=== PATIENT | female | born 1955 | race Caucasian/White ===

== ENCOUNTER 2020-04-28 15:51 | Emergency (ER) | payer MEDICARE, MEDICAID, SELFPAY ==
[2020-04-28 16:34] VITALS: BP 102/63; PULSE 97; RESP 16; TEMP 36.2; O2SAT 94; BMI 34.7
--- NOTE | 2020-04-28 17:14 | XRR_ITS ---
PROCEDURE INFORMATION: Exam: XR Abdomen, 1 View Exam date and time: 04/28/2020 6:43 PM Age: 65 years old Clinical indication: Abdominal pain; Generalized TECHNIQUE: Imaging protocol: XR of the abdomen. Views: Frontal supine view of the abdomen. 1 View. COMPARISON: No relevant prior studies available. FINDINGS: Gastrointestinal tract: No dilated gas-filled loops of bowel. Organs: Prior cholecystectomy. Bones/joints: There is a curvature of the lumbar spine convex to the left associated with multilevel facet arthropathy. XR/XR KUB portable [id number] IMPRESSION: No acute abnormality.
--- NOTE | 2020-04-28 18:22 | W.ED.GENADLT ---
HPI - General Adult General: Chief complaint: General Medical Stated complaint: possible bowel obstruction Time Seen by Provider: 04/28/20 18:20 History of Present Illness: HPI narrative: Patient sent from clinic by ASSOCIATE SPA DIRECTOR for possible rule out small bowel obstruction. Patient had a bowel obstruction and 1984 from hysterectomy scarring. Patient said she has vomited earlier this weekend but she is not been vomiting more she denies any pain presently does have diarrhea not had a large bowel movement yet. Denies any fever chills or other problems. MD complaint: Decreased bowel movement Onset (ago): day(s) Location: abdomen Radiation: non-radiation Severity: mild Severity scale (1-10): 1 Associated symptoms: Reports other (Diarrhea); Deny chest pain, dyspnea, headache(s), nausea, rash or vomiting Review of Systems Const: Denies: fever(s), chills or body aches Eyes: Denies: change in vision or blurry vision ENMT: Denies: throat pain or nasal congestion Card: Denies: chest pain or dyspnea on exertion Resp: Denies: dyspnea, productive cough or non-productive cough GI: Reports: diarrhea; Denies: abdominal pain, nausea or vomiting Musc: Denies: extremity pain Skin/Breast: Denies: rash Neuro: Denies: headache(s) Psych: Denies: anxiety or depression Rey/Lymph: Denies: easy bruising PFS ED PFSH: Social History (Updated 04/28/20 @ 16:39 by Enrique Garay RN) Smoking and tobacco status: never smoked Alcohol intake: never Substance/Drug Use: never Physical Exam Const: COMMON NORMALS: no acute distress, average body habitus and patient oriented x3 HENMT: COMMON NORMALS: normocephalic HEAD & SCALP: normal to inspection and normocephalic FACE & SINUS: normal facial exam Eye: COMMON NORMALS: conjunctivae normal GENERAL EYE: appearance normal, both eyes and all related structures CONJUNCTIVA: Yes conjunctivae normal Neck/C-Spine: COMMON NORMALS: no JVD Chest: COMMONS NORMALS: normal inspection of the chest Resp: COMMON NORMALS: normal respiratory effort and clear to auscultation bilaterally AUSCULTATION: clear to auscultation bilaterally Cardio: COMMON NORMALS: no JVD, regular rate and regular rhythm RATE: regular rate RHYTHM: regular rhythm GI: COMMON NORMALS: Normal to inspection, nondistended, normoactive bowel sounds present Extremity: COMMON NORMALS: normal to inspection and full ROM Neuro: COMMON NORMALS: patient oriented x3 Course Vital Signs: Vital signs: Vital Signs Temperature 97.2 F L 04/28/20 16:34 Pulse Rate 78 04/28/20 22:06 Respiratory Rate 16 04/28/20 22:06 Blood Pressure 110/72 04/28/20 22:06 Pulse Oximetry 99 04/28/20 22:06 MDM - General Adult MDM Narrative: Medical decision making narrative: Discussed case and lab results with patient symptoms with Dr. Hendricks agreed that based on patient running fever and not having vomiting presently and that she feels much better that she safe to go home. Lab Data: Labs: Lab Results 04/28/20 04/28/20 04/28/20 Range/Units 18:27 18:32 18:32 WBC 17.6 H (4.0-10.0) 10^3/ uL RBC 5.36 H (4.1-5.3) 10^6/u L Hgb 15.9 H (11.5-15.3) g/dL Hct 50.4 H (37.0-47.0) % MCV 94.0 (81-99) fL MCH 29.7 (28.0-34.0) pg MCHC 31.5 (30.0-36.0) g/dL RDW 14.9 (12.1-15.1) % Plt Count 419 H (130-400) 10^3/c mm MPV 8.6 (7.4-10.4) fL Neut % (Auto) 74.5 % Lymph % (Auto) 18.3 % [place] % (Auto) 6.3 % Eos % (Auto) 0.1 % Baso % (Auto) 0.3 % Neut # (Auto) 13.09 H (1.8-7.7) 10^3/u L Lymph # (Auto) 3.2 (0.8-4.8) 10^3/u L [place] # (Auto) 1.1 H (0.2-0.9) 10^3/u L Eos # (Auto) 0.0 (0.0-0.8) 10^3/u L Baso # (Auto) 0.1 (0.0-0.1) 10^3/u L Nucleated RBC % (a uto) 0 % Nucleated RBCs # 0.0 /100WBC Sodium 143 (136-145) mmol/L Potassium 3.9 (3.5-5.1) mmol/L Chloride 96 L (98-107) mmol/L Carbon Dioxide 31 H (22-29) mmol/L Anion Gap 19.9 H (5-19) BUN 26 H (8-23) mg/dL Creatinine 1.5 H (0.5-0.9) mg/dL GFR Calculation 34.9 L (90-130) mL/min Glucose 147 H (65-115) mg/dL Calculated Osmolal ity 303 H (285-295) mOsm/k g Calcium 10.7 H (8.5-10.5) mg/dL Total Bilirubin 0.5 (0.15-1.2) mg/dL AST 24 (0-32) U/L ALT 35 H (0-33) U/L Alkaline Phosphata se 105 (35-105) IU/L Total Protein 9.0 H (6.6-8.7) g/dL Albumin 4.5 (3.5-5.2) g/dL Globulin 4.5 (1.3-4.6) g/dL Lipase 32 (13-60) U/L Urine Color Yellow (Yellow) Urine Appearance Cloudy (CLEAR) Urine pH 5 (5-7) Ur Specific Gravit y 1.030 (1.005-1.030) Urine Protein 2+ H (Negative) Urine Glucose (UA) Trace H (Normal) Urine Ketones 1+ H (Negative) Urine Blood 2+ H (Negative) Urine Nitrate Negative (Negative) Urine Bilirubin 1+ H (Negative) Urine Urobilinogen 1 H (Negative) mg/dL Ur Leukocyte Sue ase Trace H (Negative) Urine RBC 0-4 H (0-2) /hpf Urine WBC 10-15 H (0-5) /hpf Ur Squamous Epith Cells 25-40 H (0-5) /hpf Amorphous Sediment Not Reportable Urine Bacteria 3+ H (NONE) /hpf Hyaline Casts 0-4 H /lpf Discharge Plan Discharge Patient Disposition: Home Clinical Impression: Acute pyelonephritis Condition: Stable Prescriptions: New Cipro 500 mg tablet 500 mg PO BID Qty: 14 RF: 0 Zofran 4 mg tablet 4 mg PO Q8H PRN (Reason: nausea and vomiting) Qty: 10 RF: 0 Discharge Orders: Discharge Order (Routine); Ordered 04/28/20 Ordered By: Gurpreet Bateman Referrals: Dewey Leyva, HEALTHCARE INSURANCE SALES AGENT [Primary Care Provider] - Discharge Diet: Usual diet Discharge Activity: Increase activity as tolerated Patient Instructions: Acute Pyelonephritis (ED) Activity Restrictions/Additional Instructions: Follow-up with medical provider as directed. Take medications as prescribed. Return to the ER or your medical provider if condition worsens. Please read and understand discharge instructions. If any questions ask please. Drink plenty of fluid follow-up with your family medical provider this week and repeat lab test to make sure results look better urine is clearing up if worsening symptoms return here Discharge Date/Time: 04/28/20 22:07 Coding Level of Care Code ED Molasses Coloring Operator for Angel Fwd Exam Comprehensive
[2020-04-28 18:36] VITALS: BP 150/93; PULSE 90; RESP 18; O2SAT 92
[2020-04-28 18:38] LABS: Basophils # 0.1 10^3/uL (0.0-0.1); Basophils % 0.3 %; Eosinophils % 0.1 %; Hematocrit 50.4 % (37.0-47.0); Hemoglobin 15.9 g/dL (11.5-15.3); Lymphocytes # 3.2 10^3/uL (0.8-4.8); Lymphocytes % 18.3 %; Mean Corpuscular HGB Conc 31.5 g/dL (30.0-36.0); Mean Corpuscular Hemoglobin 29.7 pg (28.0-34.0); Mean Platelet Volume 8.6 fL (7.4-10.4); Monocytes # 1.1 10^3/uL (0.2-0.9); Monocytes % 6.3 %; Neutrophils # 13.09 10^3/uL (1.8-7.7); Neutrophils % 74.5 %; Nucleated Red Blood Cells % 0 %; Platelet Count 419 10^3/cmm (130-400); Red Blood Count 5.36 10^6/uL (4.1-5.3); Red Cell Distribution Width 14.9 % (12.1-15.1); White Blood Count 17.6 10^3/uL (4.0-10.0)
--- NOTE | 2020-04-28 18:49 | CTR_ITS ---
PROCEDURE INFORMATION: Exam: CT Abdomen And Pelvis With Contrast Exam date and time: 04/28/2020 7:47 PM Age: 65 years old Clinical indication: Vomiting; Prior surgery; Additional info: Decreased bm TECHNIQUE: Imaging protocol: Computed tomography of the abdomen and pelvis with intravenous contrast. Radiation optimization: All CT scans at this facility use at least one of these dose optimization techniques: automated exposure control; mA and/or kV adjustment per patient size (includes targeted exams where dose is matched to clinical indication); or iterative reconstruction. Contrast material: OMNI 300; Contrast volume: 95 ml; Contrast route: INTRAVENOUS (IV); COMPARISON: CR XR KUB portable [id number] 04/28/2020 6:33 PM RADIATION DOSE METRICS: Total DLP (mGy-cm): 1301.89 FINDINGS: Heart: Fat density between the right and left atria could represent a lipoma. Liver: Normal. No mass. Gallbladder and bile ducts: Cholecystectomy. The bile ducts are normal. Pancreas: Normal. No ductal dilation. Spleen: Normal. No splenomegaly. Adrenals: Normal. No mass. Kidneys and ureters: Low-density lesions in the right kidney are too small to characterize but most likely represent cysts. No follow-up is recommended. The left kidney is unremarkable. No calculus or hydronephrosis. Stomach and bowel: Fluid filled stomach which is otherwise normal. Diverticulosis of the descending and sigmoid colon without diverticulitis. The colon is relatively decompressed with a small amount of fluid and scattered stool. Appendix: The appendix is not visualized. Intraperitoneal space: Unremarkable. No free air. No significant fluid collection. Vasculature: Coronary artery calcifications. Lymph nodes: Unremarkable. No enlarged lymph nodes. Urinary bladder: Unremarkable as visualized. Reproductive: The uterus is absent. The ovaries are normal. Bones/joints: Lumbar scoliosis and mild degenerative changes. No compression fracture. Soft tissues: Unremarkable. CT/CT abdomen pelvis w con* [id number] IMPRESSION: 1. No acute abnormality identified in the abdomen or pelvis. 2. Diverticulosis of the distal colon. COMMENTS: Consistent with the [employer]'s Incidental Findings Committee white paper (J Am Ayesha Radiol 2018): Any incidental renal lesion less than 1 cm or classified as too small to characterize, or any incidental cystic renal lesion characterized as simple-appearing, is likely benign. No follow-up imaging is recommended for these lesions per consensus recommendations based on imaging criteria. Radiation Dose CTDIVOL = (mGy): DLP = 1301.89 (mGy-cm)
[2020-04-28 18:53] LABS: Add Urine Microscopic? YES; Bilirubin Urine 1+ (Negative); Blood Urine 2+ (Negative); Glucose Urine UA Trace (Normal); Ketones Urine 1+ (Negative); Leukocyte Esterase Urine Trace (Negative); Nitrate Urine Negative (Negative); Protein Urine 2+ (Negative); Urine Appearance Cloudy (CLEAR); Urine Color Yellow (Yellow); Urobilinogen Urine 1 mg/dL (Negative); pH Urine 5 (5-7)
[2020-04-28 18:56] LABS: Alanine Aminotransferase 35 U/L (0-33); Albumin Level 4.5 g/dL (3.5-5.2); Alkaline Phosphatase 105 IU/L (35-105); Anion Gap 19.9 (5-19); Aspartate Amino Transferase 24 U/L (0-32); Blood Urea Nitrogen 26 mg/dL (8-23); Calcium 10.7 mg/dL (8.5-10.5); Carbon Dioxide 31 mmol/L (22-29); Chloride 96 mmol/L (98-107); Globulin 4.5 g/dL (1.3-4.6); Glomerular Filtration Rate 34.9 mL/min (90-130); Glucose 147 mg/dL (65-115); Lipase 32 U/L (13-60); Osmolality Calculated 303 mOsm/kg (285-295); Potassium 3.9 mmol/L (3.5-5.1); Sodium 143 mmol/L (136-145); Total Bilirubin 0.5 mg/dL (0.15-1.2)
[2020-04-28 19:00] LABS: Squamous Epithelial Cell Urine 25-40 /hpf (0-5)
[2020-04-28 19:07] LABS: Bacteria Urine 3+ /hpf; Hyaline Casts Urine 0-4 /lpf; RBC Urine 0-4 /hpf (0-2)
[2020-04-28 19:10] LABS: Add Urine Culture? No
[2020-04-28 19:41] VITALS: BP 105/71; PULSE 83; RESP 16; O2SAT 92
[2020-04-28] MEDS: ondansetron 2 mg/ML SDV 2 mL 4 MG IVP (19:44)
[2020-04-28] MEDS: iodixanol 320 mg/mL 100mL Btl IV (19:52)
[2020-04-28] MEDS: sodium chloride 0.9% 1,000 ML 999 ML IV (20:54)
[2020-04-28] MEDS: cefTRIAXone 1,000 MG in sodium chloride 0.9% (plus) 50 ML 100 MG IV (20:55)
[2020-04-28 22:06] VITALS: BP 110/72; PULSE 78; RESP 16; O2SAT 99
== END 2020-04-28 22:07 | disposition home or self-care (01) ==
PROVIDERS: Emergency Provider Nurse Practitioner Family; PCP Nurse Practitioner
DX: N10 Acute pyelonephritis (principal)
CPT/HCPCS: 12345; 36415; 74018; 74177; 80053; 81001; 83690; 85025; 96365; 96375; 99283; 99284; J0696; J2405; J7030; Q9967

== ENCOUNTER 2020-05-12 22:35 | Emergency (ER) | payer MEDICARE, MEDICAID, SELFPAY ==
[2020-05-12 22:38] VITALS: BP 110/65; PULSE 73; RESP 18; TEMP 37.4; O2SAT 98; BMI 33.8
--- NOTE | 2020-05-12 22:43 | ED_ITS ---
HPI - Nausea/Vomiting/Diarrhea General: Chief complaint: Nausea/Vomiting/Diarrhea Stated complaint: N/V Time Seen by Provider: 05/12/20 22:36 Source: patient Mode of arrival: EMS Limitations: no limitations History of Present Illness: HPI Narrative: Kelley is a 65-year-old female states she been having vomiting over the last 2 weeks. Patient was seen here 2 weeks ago and diagnosed UTI and was placed on antibiotics. Patient's had diffuse abdominal pain she rates a 3 out of 10. States she was improving last week and got worse again this week and is multiple episodes of vomiting today. Denies any worsening or improving factors. Denies any fevers. Associated nausea: Yes Associated symtoms: Reports nausea; Denies chest pain, dysuria or headache(s) Review of Systems Const: Denies: fever(s), chills, body aches or change in appetite Eyes: Denies: blurry vision or eye discomfort ENMT: Denies: throat pain or dental pain Card: Denies: chest pain Resp: Denies: dyspnea GI: Reports: abdominal pain, nausea and vomiting : Denies: dysuria Musc: Denies: neck pain or back pain Skin/Breast: Denies: rash Neuro: Denies: headache(s) Psych: Denies: depression Rey/Lymph: Denies: easy bruising All/Imm: Denies: urticaria PFS ED PFSH: Social History (Updated 04/28/20 @ 16:39 by Enrique Garay RN) Smoking and tobacco status: never smoked Alcohol intake: never Physical Exam Const: COMMON NORMALS: no acute distress, patient oriented x3 and healthy appearing HENMT: COMMON NORMALS: normocephalic and atraumatic HEAD & SCALP: normocephalic and atraumatic Eye: COMMON NORMALS: Equal, round and reactive pupils present and EOMs intact bilaterally PUPIL: Yes Equal, round and reactive pupils present Neck/C-Spine: COMMON NORMALS: full ROM and supple Chest: COMMONS NORMALS: normal inspection of the chest and normal palpation of entire chest wall Resp: COMMON NORMALS: normal respiratory effort, No retractions, No use of accessory muscles and clear to auscultation bilaterally AUSCULTATION: clear to auscultation bilaterally Cardio: COMMON NORMALS: regular rate, regular rhythm and No murmurs present (Cardio) RATE: regular rate RHYTHM: regular rhythm GI: COMMON NORMALS: Normal to inspection, nondistended, normoactive bowel sounds present, Soft to palpation, non-tender and no masses PALPATION: Yes Soft to palpation Extremity: COMMON NORMALS: normal to inspection and full ROM Neuro: COMMON NORMALS: patient oriented x3, moves all extremities and no focal motor deficits Psych: COMMON NORMALS: mental status grossly normal, Normal thought process present and cooperative THOUGHT PROCESS: Normal thought process present Skin: COMMON NORMALS: no rashes or lesions noted and no wounds GENERAL SKIN EXAM: no rashes or lesions noted Course Vital Signs: Vital signs: Vital Signs Temperature 99.3 F 05/12/20 22:38 Pulse Rate 64 05/13/20 01:04 Respiratory Rate 18 05/13/20 01:04 Blood Pressure 108/70 05/13/20 01:04 Pulse Oximetry 97 05/13/20 01:04 MDM - Nausea/Vomiting/Diarrhea MDM Narrative: Medical decision making narrative: Kelley presents here with abdominal pain along with CT showing concerns for gastric ulcer. Will start patient on clarithromycin along with Flagyl and a PPI and bismuth. We will have her follow-up with surgery and likely needs a scope. Her pain is much improved here and she had no vomiting here. I informed her she needs to return immediately she has any increase in pain. She understands and agrees to this plan. Lab Data: Labs: Lab Results 05/12/20 05/12/20 Range/Units 22:52 22:52 WBC 15.0 H (4.0-10.0) 10^3/ uL RBC 4.88 (4.1-5.3) 10^6/u L Hgb 14.4 (11.5-15.3) g/dL Hct 44.7 (37.0-47.0) % MCV 91.6 (81-99) fL MCH 29.5 (28.0-34.0) pg MCHC 32.2 (30.0-36.0) g/dL RDW 13.6 (12.1-15.1) % Plt Count 447 H (130-400) 10^3/c mm MPV 9.4 (7.4-10.4) fL Neut % (Auto) 75.3 % Lymph % (Auto) 18.2 % [place] % (Auto) 5.5 % Eos % (Auto) 0.3 % Baso % (Auto) 0.3 % Neut # (Auto) 11.27 H (1.8-7.7) 10^3/u L Lymph # (Auto) 2.7 (0.8-4.8) 10^3/u L [place] # (Auto) 0.8 (0.2-0.9) 10^3/u L Eos # (Auto) 0.0 (0.0-0.8) 10^3/u L Baso # (Auto) 0.1 (0.0-0.1) 10^3/u L Nucleated RBC % (a uto) 0 % Nucleated RBCs # 0.0 /100WBC Sodium 138 (136-145) mmol/L Potassium 2.9 L (3.5-5.1) mmol/L Chloride 91 L (98-107) mmol/L Carbon Dioxide 30 H (22-29) mmol/L Anion Gap 19.9 H (5-19) BUN 57 H (8-23) mg/dL Creatinine 1.0 H (0.5-0.9) mg/dL GFR Calculation 55.6 L (90-130) mL/min Glucose 126 H (65-115) mg/dL Calculated Osmolal ity 303 H (285-295) mOsm/k g Calcium 9.3 (8.5-10.5) mg/dL Total Bilirubin 0.8 (0.15-1.2) mg/dL AST 21 (0-32) U/L ALT 29 (0-33) U/L Alkaline Phosphata se 77 (35-105) IU/L Total Protein 7.5 (6.6-8.7) g/dL Albumin 3.6 (3.5-5.2) g/dL Globulin 3.9 (1.3-4.6) g/dL Lipase 101 H (13-60) U/L Imaging Data^: CT Abd/Pel: Radiologist's impression: [address] [address] [address] Scan Report Signed Patient: Kelley Tai Unit #: [id number] : 1955 Age/Sex: 65 / F ADM Date: 05/12/20 Loc: ER Room/Bed: Attending Dr: Ordering Provider/Ordering MD: Corky Blackwood MD Date of Service: 05/12/20 Procedure(s): CT abdomen pelvis w con* [id number] Accession Number(s): [id number] Report Number: [id number] PROCEDURE INFORMATION: Exam: CT Abdomen And Pelvis With Contrast Exam date and time: 05/12/2020 11:20 PM Age: 65 years old Clinical indication: Abdominal pain; Generalized; Prior surgery; Surgery type: Cholecystectomy, appendectomy, hysterectomy, colon; Additional info: Abd pain TECHNIQUE: Imaging protocol: Computed tomography of the abdomen and pelvis with intravenous contrast. Radiation optimization: All CT scans at this facility use at least one of these dose optimization techniques: automated exposure control; mA and/or kV adjustment per patient size (includes targeted exams where dose is matched to clinical indication); or iterative reconstruction. Contrast material: VISI; Contrast volume: 95 ml; Contrast route: INTRAVENOUS (IV); COMPARISON: CT abdomen pelvis w con* [id number] 04/28/2020 7:46 PM RADIATION DOSE METRICS: Total DLP (mGy-cm): 1114.76 FINDINGS: Lungs: There is subpleural atelectasis of the dependent portions of the lungs. Mediastinal space: A small hiatal hernia is present. Liver: There is a diffuse decrease in hepatic parenchymal density, consistent with fatty infiltration. Gallbladder and bile ducts: There has been a cholecystectomy. There is no common bile duct dilation. Pancreas: Normal. No ductal dilation. Spleen: Normal. No splenomegaly. Adrenals: Normal. No mass. Kidneys and ureters: There are multiple renal hypodensities that cannot be further characterized on the current examination. Stomach and bowel: The stomach is very distended with fluid. There is marked wall thickening/edema of the distal stomach with haziness of the adjacent fat. There is an at pouching in the gastric wall that may be an ulcer. No evidence of perforation. The remaining loops of bowel have an appropriate appearance. Extensive diverticulosis is present in the distal colon. There is no evidence of colitis/diverticulitis. Appendix: There has been an appendectomy. Intraperitoneal space: Unremarkable. No free air. No significant fluid collection. Vasculature: The aorta demonstrates mild atherosclerotic calcification. Lymph nodes: Unremarkable.No enlarged lymph nodes. Urinary bladder: Unremarkable as visualized. Reproductive: There has been a hysterectomy. Bones/joints: Unremarkable. No acute fracture. Soft tissues: Unremarkable. CT/CT abdomen pelvis w con* [id number] IMPRESSION: Markedly abnormal distal stomach/pylorus with marked wall thickening/edema and concern for ulcer without perforation. Underlying gastric neoplasm versus gastritis cannot be differentiated. Follow-up with endoscopy is recommended. The stomach is very distended with fluid. Radiation Dose CTDIVOL = (mGy): DLP = 1114.76 (mGy-cm) Discharge Plan Discharge Patient Disposition: Home Clinical Impression: Gastric ulcer Qualifiers: Gastric ulcer chronicity: unspecified ulcer chronicity Gastric ulcer complication status: without hemorrhage or perforation Qualified Code(s): K25.9 - Gastric ulcer, unspecified as acute or chronic, without hemorrhage or pe rforation Condition: Stable Prescriptions: [place] 5-325 mg tablet 1 tab PO Q6H PRN (Reason: pain) Qty: 14 RF: 0 ondansetron 4 mg tablet,disintegrating 4 mg PO Q6H PRN (Reason: nausea and vomiting) Qty: 14 RF: 0 clarithromycin 500 mg tablet 500 mg PO BID 14 Days Qty: 28 RF: 0 Flagyl 500 mg tablet 500 mg PO BID 14 Days Qty: 28 RF: 0 Protonix 40 mg tablet,delayed release (DR/EC) 40 mg PO DAILY Qty: 60 RF: 0 Bismuth 262 mg tablet,chewable 2 tab PO QID 3 Days Qty: 24 RF: 0 No Action Cipro 500 mg tablet 500 mg PO BID Qty: 14 RF: 0 Zofran 4 mg tablet 4 mg PO Q8H PRN (Reason: nausea and vomiting) Qty: 10 RF: 0 Discharge Orders: Discharge Order (Routine); Ordered 05/13/20 Ordered By: Corky Blackwood Referrals: Rocco Schaeffer MD [Physician] - 1-3 days Dewey Leyva FNP [Primary Care Provider] - Discharge Diet: Advance as tolerated Discharge Activity: Resume usual activity Patient Instructions: Peptic Ulcer (ED), Diet for Ulcers and Gastritis (ED) Discharge Date/Time: 05/13/20 01:06 Coding Level of Care Code ED Head Of Ethics And Compliance for Chg Fwd Exam Comprehensive
[2020-05-12] MEDS: sodium chloride 0.9% 1,000 ML 999 ML IV (22:52)
[2020-05-12] MEDS: ondansetron 2 mg/ML SDV 2 mL 4 MG IVP (22:52)
[2020-05-12 22:55] LABS: Basophils # 0.1 10^3/uL (0.0-0.1); Basophils % 0.3 %; Eosinophils % 0.3 %; Hematocrit 44.7 % (37.0-47.0); Hemoglobin 14.4 g/dL (11.5-15.3); Lymphocytes # 2.7 10^3/uL (0.8-4.8); Lymphocytes % 18.2 %; Mean Corpuscular HGB Conc 32.2 g/dL (30.0-36.0); Mean Corpuscular Hemoglobin 29.5 pg (28.0-34.0); Mean Corpuscular Volume 91.6 fL (81-99); Mean Platelet Volume 9.4 fL (7.4-10.4); Monocytes # 0.8 10^3/uL (0.2-0.9); Monocytes % 5.5 %; Neutrophils # 11.27 10^3/uL (1.8-7.7); Neutrophils % 75.3 %; Nucleated Red Blood Cells % 0 %; Platelet Count 447 10^3/cmm (130-400); Red Blood Count 4.88 10^6/uL (4.1-5.3); Red Cell Distribution Width 13.6 % (12.1-15.1)
[2020-05-12 23:16] LABS: Alanine Aminotransferase 29 U/L (0-33); Albumin Level 3.6 g/dL (3.5-5.2); Alkaline Phosphatase 77 IU/L (35-105); Anion Gap 19.9 (5-19); Aspartate Amino Transferase 21 U/L (0-32); Blood Urea Nitrogen 57 mg/dL (8-23); Calcium 9.3 mg/dL (8.5-10.5); Carbon Dioxide 30 mmol/L (22-29); Chloride 91 mmol/L (98-107); Globulin 3.9 g/dL (1.3-4.6); Glomerular Filtration Rate 55.6 mL/min (90-130); Glucose 126 mg/dL (65-115); Lipase 101 U/L (13-60); Osmolality Calculated 303 mOsm/kg (285-295); Sodium 138 mmol/L (136-145); Total Bilirubin 0.8 mg/dL (0.15-1.2); Total Protein 7.5 g/dL (6.6-8.7)
[2020-05-12 23:19] LABS: Potassium 2.9 mmol/L (3.5-5.1)
--- NOTE | 2020-05-12 23:20 | PC.NURSE ---
Critical lab for potassium 2.9 ED physician notified.
[2020-05-12] MEDS: iodixanol 320 mg/mL 100mL Btl IV (23:50)
[2020-05-13] MEDS: potassium chloride ER 10 mEq Tablet 40 MEQ PO (00:12)
[2020-05-13 00:15] VITALS: BP 108/70; PULSE 69; RESP 18; O2SAT 97
[2020-05-13 01:04] VITALS: BP 108/70; PULSE 64; RESP 18; O2SAT 97
--- NOTE | 2020-05-13 08:49 | DCPLANNER ---
people manager had message to schedule a follow up appointment for patient with general surgery. people manager called [facility], spoke with Julissa, gave clinic patients information. people manager was told that patients information would be printed and reviewed. Clinic will call patient with appointment information.
--- NOTE | 2020-05-21 10:23 | DCPLANNER ---
health policy manager called [facility], spoke with Zaria, a follow up appointment was scheduled for Wednesday, June 03, 2020 at 1:[address] Schaeffer. health policy manager called patient, she stated that she did not want the appointment, she would like for supervisor case loading to cancel the appointment. health policy manager called [facility], spoke with Sanam, and cancelled the appointment.
== END 2020-05-13 01:06 | disposition home or self-care (01) ==
PROVIDERS: Emergency Provider Emergency Medicine; PCP Nurse Practitioner
DX: K25.9 Gastric ulcer, unspecified as acute or chronic, without hemorrhage or perforation (principal)
CPT/HCPCS: 12345; 74177; 80053; 83690; 85025; 96361; 96374; 96375; 99283; J2405; J7030; Q9967

== ENCOUNTER 2022-02-14 08:17 | Day surgery (SDC) | payer MEDICARE, MEDICAID, SELFPAY ==
[2022-02-10 14:10] VITALS: BMI 36.7
--- NOTE | 2022-02-14 07:29 | P.HP_ITS ---
Same Day Surgery H&P Indication for Procedure/HPI DATE OF PROCEDURE: February 14, 2022 CHIEF COMPLAINT/INDICATIONFOR SURGICAL PROCEDURE: Screening and peptic ulcer disease PREOP DIAGNOSIS: Screening and peptic ulcer disease PLANNED PROCEDURE: Operation Date: 02/14/22 09:45 Proposed Procedures p EGD and colonscopy [id number],K27.9(Not Applicable) - Linden Reynoso MD s Colonoscopy(Not Applicable) - Linden Reynoso MD Medications/Allergies* Home Medications Medication Instructions Recorded Confirmed Type esomeprazole magnesium 40 mg 40 mg PO DAILY 01/12/22 02/10/22 History capsule,delayed release (Nexium) lisinopril 20 mg tablet 20 mg PO DAILY 01/12/22 02/10/22 History Allergies/Adverse Reactions Allergy/AdvReac Type Severity Reaction Status Date / Time No Known Allergies Allergy Verified 02/07/22 14:23 Pertinent History/Comorbid Conditions* Family History (Updated 01/12/22 @ 16:33 by Rayray Lopez) Aneurysm Mother Heart attack Father Brother Cancer Grandmother cervical Sister Brain, Breast Stroke Father Social History Smoking and tobacco status: never smoked Alcohol intake: never Pertinent Exam Findings alert, oriented x 3, clear to auscultation bilaterally, regular rate & rhythm, operative site marked and procedure specific exam findings Recommendations Surgery/Procedure today Coding Level of Care Code Acute Fitter'S Assistant for Angel Smith
[2022-02-14 08:45] VITALS: BP 146/98; PULSE 108; RESP 18; TEMP 36.1; O2SAT 96
[2022-02-14] MEDS: sodium chloride 0.9% 1,000 ML 30 ML IV (08:57)
--- NOTE | 2022-02-14 09:16 | ANES.PREANE2 ---
Pre-Anesthetic Assessment Height/Weight: Height 1.57 m Weight 91.172 kg Temp Pulse Resp BP Pulse Ox 97 F L 108 H 18 146/98 96 02/14/22 08:45 02/14/22 08:45 02/14/22 08:45 02/14/22 08:45 02/14/22 08:45 Preop Diagnosis: PUD Operation Date: 02/14/22 09:45 Proposed Procedures p EGD and colonscopy [id number],K27.9(Not Applicable) - Linden Reynoso MD s Colonoscopy(Not Applicable) - Linden Reynoso MD Familial anesthetic complications: None Was Beta David taken within 24 hours: N/A Was Clonidine taken within 24 hours: N/A Last intake: Intake Last Liquid Date 02/13/22 Last Liquid Time 17:00 Last Solid Date 02/12/22 Last Solid Time 23:00 Social No alcohol and No tobacco Exam alert, oriented x 3, clear to auscultation bilaterally and regular rate & rhythm Airway Submandibular: within normal limits Cervical ROM: within normal limits Mallampati: Class II Dentition: full Pulmonary None reported CV/HEM Hypertension None reported Hepatic None reported GI Gastroesophageal Reflux Disease Metabolic None reported Musc/skel None reported Neuropsych None reported Anesthetic Plan ASA status: 2 Anesthesia: Anesthesia Evaluation, General and MAC Other: I discussed with the patient risks, goals, and benefits of MAC and general anesthesia. We discussed spectrum of MAC anesthesia including conversion to general as well as possibility of recall of intraoperative stimuli including discomfort/pain. Patient agrees to proceed with MAC. Risk of > 500 ml blood loss (7ml/kg in children): No Medications/Allergies Home Medications Medication Instructions Recorded Confirmed Last Taken Type esomeprazole magnesium 40 mg 40 mg PO DAILY 01/12/22 02/10/22 02/13/22 History capsule,delayed release (Nexium) lisinopril 20 mg tablet 20 mg PO DAILY 01/12/22 02/10/22 02/13/22 History Allergies Allergy/AdvReac Type Severity Reaction Status Date / Time No Known Allergies Allergy Verified 02/07/22 14:23 Current Medications Generic Name Dose Route Start Last Admin Trade Name Freq PRN Reason Stop Dose Admin Sodium Chloride 1,000 mls @ 30 mls/hr 02/14/22 08:45 02/14/22 08:57 Sodium Chloride 0.9% IV 30 mls/hr .Q24H NAILA Administration PFSH Anesthesia Family History Father Stroke Heart attack Brother Heart attack Grandmother Cancer cervical Mother Aneurysm Sister Cancer Brain, Breast Social History Smoking and tobacco status: never smoked Alcohol intake: never Data Anesthesia Cardiac Studies: No Data to Display
[2022-02-14 10:46] VITALS: BP 106/51; PULSE 79; RESP 12; TEMP 36.1; O2SAT 98
--- NOTE | 2022-02-14 10:50 | ANE.PACU2 ---
Documented by User: Steve Reid CRNA 02/14/22 10:50 Inpatient post-anesthesia follow up: Airway intact: Yes Vital signs: Temperature 97 F Pulse Rate 108 Respiratory Rate 18 Blood Pressure 146/98 Pulse Oximetry 96 Oxygen Delivery Me thod Room Air Oxygen Flow Rate Fraction of Inspir ed Oxygen Hydration adequate: Yes Nausea and vomiting: No Pain level: 1 Mental status: Baseline
[2022-02-14 11:02] VITALS: BP 118/73; PULSE 80; RESP 16; O2SAT 95
== END 2022-02-14 11:14 | disposition home or self-care (01) ==
PROVIDERS: PCP Nurse Practitioner; Visit Provider Internal Medicine
PROC: 0DJ08ZZ Inspection of Upper Intestinal Tract, Via Natural or Artificial Opening Endoscopic (ICD-10-PCS; CPT 43235; principal; 2022-02-14 09:45)
PROC: 0DJD8ZZ Inspection of Lower Intestinal Tract, Via Natural or Artificial Opening Endoscopic (ICD-10-PCS; CPT 45378; 2022-02-14 09:45)
DX: Z12.11 Encounter for screening for malignant neoplasm of colon (principal); Z87.11 Personal history of peptic ulcer disease; K57.30 Diverticulosis of large intestine without perforation or abscess without bleeding; K44.9 Diaphragmatic hernia without obstruction or gangrene; I10 Essential (primary) hypertension; K21.9 Gastro-esophageal reflux disease without esophagitis
CPT/HCPCS: 43235; G0121; J2704; J7030

== ENCOUNTER 2024-12-24 10:31 | Outpatient (CLI) | payer MEDICARE, SELFPAY ==
--- NOTE | 2024-12-24 10:42 | CT_ITS ---
WS: [id number] CT NECK TECHNIQUE: Contrast-enhanced CT of the neck with coronal and sagittal reformatted images. CLINICAL INFORMATION: LYMPHADENOPATHY COMPARISON: None. DLP: 377.[address] scans at [facility] use at least one of these dose optimization techniques: automated exposure control; mA and/or kV adjustment per patient size (includes targeted exams where dose is matched to clinical indication); or iterative reconstruction. FINDINGS: Parotid glands are normal with a few incidental intraparotid lymph nodes. Heterogeneous dense LEFT submandibular gland with mild intraductal dilatation can be seen with prior episodes of sialadenitis. 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 Paranasal sinuses are well aerated. Mastoid air cells are well aerated. Normal posterior nasopharynx and parapharyngeal fat. Atrophic thyroid gland. Normal posterior nasopharynx. No evidence of supraglottic or glottic mass. Normal subglottic airway. Lung apices are well aerated. Few slightly prominent cervical lymph nodes. No pathologic lymphadenopathy. RIGHT dominant jugular vein. No other acute findings. CT/CT neck w con* [id number] IMPRESSION: 1. Few slightly prominent cervical lymph nodes likely reactive. No pathologic lymphadenopathy. 2. Mild RIGHT greater than LEFT carotid bulb calcification. 3. 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 Increased density in the enlarged LEFT submandibular gland with mild intraductal dilatation may b e incidental but can be seen with prior episodes of sialoadenitis. 4. No other acute findings.
[2024-12-24 11:22] LABS: Blood Urea Nitrogen 16 mg/dL (8-23); Glomerular Filtration Rate 62.1 mL/min (90-130)
[2024-12-24] MEDS: iohexol 350 mg/mL 500 mL Btl (per mL) IV (11:23)
== END 2024-12-24 10:32 | disposition home or self-care (01) ==
PROVIDERS: PCP Nurse Practitioner; Visit Provider Nurse Practitioner
DX: R59.1 Generalized enlarged lymph nodes (principal); I65.23 Occlusion and stenosis of bilateral carotid arteries; R93.89 Abnormal findings on diagnostic imaging of other specified body structures; E03.4 Atrophy of thyroid (acquired)
CPT/HCPCS: 70491; 82565; 84520

== ENCOUNTER 2025-01-16 14:23 | Outpatient (CLI) | payer MEDICARE, SELFPAY ==
--- NOTE | 2025-01-16 14:29 | USCV_ITS ---
Kelley Tai Age: 69 Gender: F : 1955 Exam Date: 01/16/2025 14:59 Ordering Phys: Dewey Leyva Technologist: ALIYA Exam Location: [facility] – [place] Indication: Stenosis Risk Factors: Previous Vascular Surgery: Right Brachial BP: / Left Brachial BP: / Right Left Velocity (cm/s) Spectral Plaque Velocity (cm/s) Spectral Plaque Syst/Diast Broadening Syst/Diast Broadening 62.60/ 17.50 Prox CCA 120.60/ 27.80 75.00/ 16.70 Mid CCA 83.90 / 30.00 67.10/ 23.00 Distal CCA 90.40 / 30.00 60.80/ 15.90 Prox ICA 57.50 / 16.50 51.60/ 14.80 Mid ICA 56.60 / 19.10 47.20/ 16.50 Distal ICA 45.30 / 16.70 83.60 ECA 85.60 0.90 ICA/CCA 0.60 Antegrade Vertebral Antegrade 44.60/ 15.20 cm/s 52.10/ 19.30 cm/s Tri Subclavian Tri 118.9 80.30 0 FINDINGS Comparison: none available. No significant elevation of systolic or diastolic velocities. Waveforms are normal. Mild carotid atherosclerosis. CONCLUSIONS Bilateral ICA stenosis less than 50%. Mild carotid plaque. Dr. Maria Del Carmen Neves DO (Electronically Signed) Final Date: 16 January 2025 15:57 S
== END 2025-01-16 14:24 | disposition home or self-care (01) ==
LOC: RAD 14:25
PROVIDERS: PCP Nurse Practitioner; Visit Provider Nurse Practitioner
DX: I65.23 Occlusion and stenosis of bilateral carotid arteries (principal)
CPT/HCPCS: 93880